=== PATIENT | male | born 1935 | race Caucasian/White ===

== ENCOUNTER 2017-07-30 10:13 | Day surgery (SDC) | payer MEDICARE, OTHER ==
[~2017-07-30] VITALS: Ht 182.9 cm; Wt 108.8 kg
[2017-07-30] MEDS ORDERED: IOHEXOL 350 MG/ML 50 ML BTL (for Cath Lab) OTHER ONE (10:14)
[2017-07-30] MEDS ORDERED: ASPIRIN 81 MG CHEW TAB PO SCH (10:45)
[2017-07-30] MEDS ORDERED: HYDR-3801 PO (10:45)
[2017-07-30] MEDS ORDERED: GLIP10TA6 PO (10:45)
[2017-07-30] MEDS ORDERED: LOSA100T PO (10:45)
[2017-07-30] MEDS ORDERED: PLAV75TA29 PO (10:45)
[2017-07-30] MEDS ORDERED: LIPI20TA PO (10:45)
[2017-07-30] MEDS ORDERED: ASPI81CH6 CHEW (10:45)
[2017-07-30 10:46] VITALS: BP 178/87; PULSE 65; RESP 18; TEMP 98.1; O2SAT 98
[2017-07-30 11:36] LABS: AUTOMATED NEUTROPHIL # 4.8 TH/MM3 (1.8-7.7); BASOPHIL # 0.1 TH/MM3 (0-0.2); BASOPHIL % 0.8 % (0.0-2.0); EOSINOPHIL # 0.3 TH/MM3 (0-0.4); EOSINOPHIL % 3.9 % (0.0-4.0); HEMATOCRIT 36.7 % (39.0-51.0); HEMOGLOBIN 12.8 GM/DL (13.0-17.0); LYMPH % 26.1 % (9.0-44.0); MEAN CORPUSCULAR HEMOGLOBIN 30.8 PG (27.0-34.0); MEAN PLATELET VOLUME 8.3 FL (7.0-11.0); MONO % 6.9 % (0.0-8.0); MONOCYTE # 0.5 TH/MM3 (0-0.9); NEUT % 62.3 % (16.0-70.0); PLATELET COUNT 181 TH/MM3 (150-450); RED BLOOD COUNT 4.17 MIL/MM3 (4.50-5.90); RED CELL DISTRIBUTION WIDTH 16.1 % (11.6-17.2); WHITE BLOOD COUNT 7.7 TH/MM3 (4.0-11.0)
[2017-07-30 11:53] LABS: BICARBONATE 27.5 MEQ/L (21.0-32.0); CALCIUM 9.5 MG/DL (8.5-10.1); CREATININE 1.74 MG/DL (0.60-1.30)
[2017-07-30 11:55] LABS: INTERNATIONAL NORMALIZED RATIO 1.1 RATIO
[2017-07-30] MEDS ORDERED: HEPARIN SODIUM - IV 10,000 UNITS/10 ML VIAL ONE (14:11)
[2017-07-30] MEDS ORDERED: NITROGLYCERIN INJ 5 ML ONE (14:11)
[2017-07-30] MEDS ORDERED: LIDOCAINE HCL 1% PF 30 ML VIAL ONE (14:17)
[2017-07-30] MEDS ORDERED: MIDAZOLAM HCL 2 MG/2 ML VIAL ONE (14:29)
[2017-07-30] MEDS ORDERED: SODIUM CHLORIDE 0.9% FLUSH 10 ML FLUSH IV FLUSH PRN (14:45)
[2017-07-30] MEDS ORDERED: MISC INFORMATION XX ONE (14:45)
--- NOTE | 2017-07-30 14:51 | CATHPROC ---
[facility] HIS Report Study Information Study Number Admission Scheduled Start Study Start [id number] Jul 30 2017 10:13AM 07/30/2017 Jul 30 2017 2:08PM [place] [facility] Cardiac Catheterization Admit Source Facility Department Other [facility] Physician and Clinical Staff Initial MD Green, Valentin Buckle Strap Drum Operator Priti Bradley,SINDY Other cathlab, cathlab Recorder Darlene Mayberry,RT(R) Scrub Petra Mcneil,RT(R) Procedures Performed Procedure Location (Site) Vessel Name Coronary Angiograms LCA Left Coronary Coronary Angiograms RCA Right Coronary L Heart Cath LV Gram-hand inj. LV LV Ventricle Wire insertion Fem Art (right) Femoral Art Equipment Time Theater Technician Description Size Mfg Part Number Used/Scraped TRANSDUCER, TRUWAVE [id number] 14:19 TREADWELL HERNANDEZ * Used W/STOCKCOCK *[id number] *[id number] *[id number] 14:19 MEDLINE IND[employer] PACK, CCL CUSTOM * Used *[id number] 14:19 [place] PACER PEN, SKIN DUAL W/ RULER * Used *[id number] 14:19 [place] WIRE, 3MMJ .035 180CM 180CM Used *[id number] 14:19 NAMIC MANIFOLD, 4 PORT * Used *[id number] 14:19 NYCOMED OMNIPAQUE, 350 MG, 150ML 150ML [id number] 14:19 [employer]A MED[employer] BLANKET,WARM AIR CCL * Used *[id number] 14:19 TERUMO MEDICAL SHEATH, FR4 TERUMO (10CM) FR 4 Used *[id number] History: Current Medications Medication Dosage/Unit Route Frequency Last Date/Time Taken Statins (any) ASA PLAVIX Glypizide LIPITOR History: Allergies Allergy Reaction No Known Drug Allergies History: Risk Factors Family History of Hypertension Dyslipidemia Previous AK Previous Heart Failure Premature CAD Yes Yes No No Yes Prior Valve Prior PCI Prior PCIDate Prior CABG Surgery No Yes 04/30/2016 No Cerebrovascular Peripheral Artery Chronic Lung On Dialysis Diabetes Diabetes Therapy Disease Disease Disease No No No No Yes Oral History: CV Disease Selection Items Known CAD History: Stress Tests Stress or Imaging Studies Performed Yes Standard Exercise Stress Test No Stress Echo No Stress Test SPECT Stress Test SPECT Result Stress Test SPECT Ischemia Risk/Extent Yes Positive High Stress Test CMR No Cardiac CTA Coronary Calcium Score No No History: Other Disease Selection Items CAD HTN History: Other Current Smoker Method No Cigarettes Labs Hgb (g/dl) Hct (%) RBC (MIL/MM3) WBC (l/cumm) Platelets (thousands) 11.60-17.00 35.00-51.00 4.00-5.90 4.00-11.00 150.00-450.00 12.8 36.7 4.1 7.7 181 Glucose (mg/dl) BUN (mg/dl) Creatinine (mg/dl) BUN:Creatinine (1:x) 74.00-106.00 7.00-18.00 0.50-1.30 10.00-20.00 102 24 1.7 14.1 Na (meq/l) K (meq/l) Cl (meq/l) CO2 (mmol/L) Ca (mg/dl) 136.00-145.00 3.50-5.10 98.00-107.00 21.00-32.00 8.50-10.10 139 3.9 104 27.5 9.5 PT (sec) INR (PTT:PT) 9.80-11.60 0.90-1.10 11 1.1 CPK-MB (ng/ML) 0.50-3.60 Not Drawn Medication Medication Total Dose (Bolus/Oral) Medication Total Dosage/Unit 1% XYLOCAINE 20 mL VERSED 1 mg Medications (Bolus/Oral) Medication Time Given Dosage/Unit Administered By Reason 1% XYLOCAINE 07/30/2017 2:31:17 PM 20 mL Valentin Green 20 mL 1% XYLOCAINE given in lab by Valentin Green in Right Groin via Subcutaneous. VERSED 07/30/2017 2:31:19 PM 1 mg Valentin Green 1 mg VERSED given in lab by Valentin Green via Peripheral IV. Medication (Drip) Medication Time Given Dosage/Unit Concentration/Unit Diluent (ml) Solution IV Bolus 07/30/2017 2:35:46 PM 1000 mL (Bolus) NaCl .9 1000 mL (Bolus) IV Bolus given in lab by Priti Bradley, SINDY via Peripheral IV. Using NaCl .9. IV Solutions 07/30/2017 2:19:01 PM 0 mL (IV) 500 NaCl .9 Patient arrived on IV Solutions in Left Antecubital via Peripheral IV. Pump/Drip Flow = 20 ml/hr usin g NaCl .9. Initial Case Assessment Cardiovascular HR Rhythm NIBP 50 roland w/pvc 156/79 Edema Present Skin color Skin None Normal Warm Circulatory - Right Pulses Dorsalis Pedis Femoral 3 3 Scale (0,1,2,3,4,d) Circulatory - Left Pulses Dorsalis Pedis Femoral d 3 Scale (0,1,2,3,4,d) Circulatory - Lower Extremities Color Lower Right Color Lower Left Normal Normal Neurological State Oriented to time-place- Alert Moves all extremities person Respiration - General Respiration Rate SpO2 (%) (B/min) 12 98 Final Case Assessment Cardiovascular HR Rhythm Chest Pain 66 roland w/pvc 0 Edema Present Skin color Skin None Normal Warm Circulatory - Right Pulses Dorsalis Pedis Femoral 3 3 Scale (0,1,2,3,4,d) Circulatory - Left Pulses Dorsalis Pedis Femoral d 3 Scale (0,1,2,3,4,d) Circulatory - Lower Extremities Color Lower Right Color Lower Left Normal Normal Neurological State Oriented to time-place- Alert Moves all extremities person Respiration - General Respiration Rate SpO2 (%) (B/min) 14 95 Chronological Log Time Study Chronological Log 14:10:43 Patient arrived via Bed. 14:10:47 Patient Name, D.O.B, / Armband Verified By R.N. 14:10:49 Consent signed by the physician and the patient and verified by the [facility] staff. Vitals capture started with the following parameters, Patient=Adult, Interval=5 min, Initial Pr bfrhab=109 mmHg, 14:18:33 Deflation Rate=5 mmHg, Cuff placed on Unknown 14:18:52 Pre-op and post- op instructions given; patient acknowledges understanding of instructions. 14:18:53 Verbal Stimulation=2 Physical Stimulation=2 Airway=2 Respiration=2 TOTAL=8. (0=absent, 1=li mited, 2=present) 14:18:55 Presedation assessment performed by [facility] RN. 14:18:57 Immediate Presedation assesment performed by physician. 14:18:57 Patient has been NPO for More than 6Hrs. 14:18:58 Skin Breakdown-none 14:18:59 Patient Warmer Placed on the Table. 14:18:59 [place] Protected 14:19:01 A # 20 IV was noted in the Antecubital (left). Grade = 0 14:19:01 Patient arrived on IV Solutions in Left Antecubital via Peripheral IV. Pump/Drip Flow = 20 ml/hr using NaCl .9. 14:19:02 History and physical on the chart or being dictated. 14:19:18 HR=53 bpm, DUUM=506/80 mmhg, SpO2=98.0 %, Resp=13 B/min, Pain=0, Meaghan=10, Cotton=2 14:20:52 Reference ECG taken 14:22:49 Pressure channel 1 zeroed. 14:23:19 MD paged 14:24:19 HR=53 bpm, DNFK=591/79 mmhg, SpO2=97.0 %, Resp=18 B/min, Pain=0, Meaghan=10, Cotton=2 14:27:03 MD arrived. Assessment: Initial Case, HR=50 BPM, Rhythm=roland w/pvc, MRHP=774/79 mmhg, Edema=None, Color=No rmal, Skin = Warm Right Pulses: [place] Ped=3, Femoral=3 Left Pulses: [place] Ped=d, Femoral=3 14:27:13 Lower Right Extremities: Color=Normal Lower Left Extremities: Color=Normal Neurological: State=Alert, Ox3, GODOY Respiration: Resp=12 B/min, SpO2=98 % 14:28:09 Bilateral groins prepped with 2% chlorhexidine, and draped after a 3 minute waiting time. 14:29:16 HR=52 bpm, BXJD=453/80 mmhg, SpO2=97.0 %, Resp=20 B/min, Pain=0, Meaghan=10, Cotton=2 Time Out. Correct patient, correct procedure, correct physician, power injector not loaded with contrast with surgical 14:31:02 team present. Time Out Concurred by MD and individual staff in procedure. 14:31:09 Case Start 14:31:11 Verbal Stimulation=2 Physical Stimulation=2 Airway=2 Respiration=2 TOTAL=8. (0=absent, 1=li mited, 2=present) 14:31:17 20 mL 1% XYLOCAINE given in lab by Valentin Green in Right Groin via Subcutaneous. 14:31:19 1 mg VERSED given in lab by Valentin Green via Peripheral IV. 14:31:58 Access site was Right Femoral Artery. 14:32:03 A wire was inserted via Fem Art (right). 14:32:06 A SHEATH, FR4 TERUMO (10CM) FR 4 was advanced into the Fem Art (right) using the Percut[place]o us technique. A JR 4.0 INFINITI CATHETER FR 4 was advanced over a wire. OMNIPAQUE, 350 MG, 150ML 150ML was us ed for 14:33:18 injections. Recorded Pressure: LV, HR=55, Condition=Condition 1 14:33:55 (Left Ventricle) LV 157/8/16 14:34:02 The LV was manually injected with 10 cc's and visualized. OMNIPAQUE, 350 MG, 150ML 150ML us ed. Recorded Pressure: LV, Ao, HR=49, Condition=Condition 1 14:34:15 (Left Ventricle) LV 151/8/19, (Aorta) Ao 148/62/92 14:34:54 HR=61 bpm, VRUK=545/78 mmhg, SpO2=96.0 %, Resp=16 B/min, Pain=0, Meaghan=10, Cotton=2 Recorded Pressure: Ao, HR=66, Condition=Condition 1 14:34:54 (Aorta) Ao 147/69/101 14:35:12 The RCA was injected and visualized at various angles. OMNIPAQUE, 350 MG, 150ML 150ML used . 14:35:27 Catheter was removed A JL 4.0 INFINITI CATHETER FR 4 was advanced over a wire. OMNIPAQUE, 350 MG, 150ML 150ML was us ed for 14:35:37 injections. 14:35:46 1000 mL (Bolus) IV Bolus given in lab by Priti Bradley, RN via Peripheral IV. Using NaCl .9. 14:37:01 The LCA was injected and visualized at various angles. OMNIPAQUE, 350 MG, 150ML 150ML used . 14:37:23 Catheter was removed 14::58 Case End Assessment: Final Case, HR=66 BPM, Rhythm=roland w/pvc, Chest Pain=0, Edema=None, Color=Normal, Skin = Warm Right Pulses: [place] Ped=3, Femoral=3 Left Pulses: [place] Ped=d, Femoral=3 14:38:03 Lower Right Extremities: Color=Normal Lower Left Extremities: Color=Normal Neurological: State=Alert, Ox3, GODOY Respiration: Resp=14 B/min, SpO2=95 % 14:39:18 HR=58 bpm, NNJU=112/78 mmhg, SpO2=97.0 %, Resp=24 B/min, Pain=0, Meaghan=10, Cotton=2 14:40:31 Sheath(s) left in place, will be removed in Holding Area 14:40:36 Sterile dressing applied to site 14:40:37 No case complications noted. 14:40:38 Cine recording checked. 14:40:40 Bedside Report will be given. 14:40:44 A Left Heart Cath was performed. 14:40:47 Patient moved to stretcher End Study - Contrast Media Used In Study Contrast Total Opened (mL) Total Used (mL) Total Wasted (mL) Omnipaque 20 20 0 End Study - Maximum Contrast Load Max Contrast Load (mL) 320.1 End Study - Radiation Exposure Fluoro Time (minutes) 1.4 End Study - Patient Disposition Complications Transferred To Outpatient Bed
[2017-07-30] MEDS ORDERED: BACITRACIN OINT 0.9 GM PKT TOP ONE (15:00)
[2017-07-30] MEDS ORDERED: SODIUM CHLORIDE 0.9% FLUSH 10 ML FLUSH IV FLUSH SCH (21:00)
--- NOTE | 2017-07-30 22:51 | EKG ---
Date Performed: 07/30/2017 Time Performed: 10:53:08 PTAGE: 82 years EKG: Sinus bradycardia Normal ECG except for rate NO PREVIOUS TRACING DOCTOR: Parvez Quinones Interpretating Date/Time 07/30/2017 22:49:00
== END 2017-07-30 17:21 | disposition home or self-care (01) ==
LOC: HDIC 10:13 → HCAT 10:13
PROVIDERS: ATTEND Internal Medicine Interventional Cardiology
DX: I25.10 Atherosclerotic heart disease of native coronary artery without angina pectoris (principal); I50.9 Heart failure, unspecified; I12.9 Hypertensive chronic kidney disease with stage 1 through stage 4 chronic kidney disease, or unspecified chronic kidney disease; N18.3 Chronic kidney disease, stage 3 (moderate); E11.9 Type 2 diabetes mellitus without complications; G47.30 Sleep apnea, unspecified; Z72.0 Tobacco use; Z79.84 Long term (current) use of oral hypoglycemic drugs; Z79.82 Long term (current) use of aspirin
CPT/HCPCS: 80048; 85025; 85610; 93005; 93458; 99152; C1769; C1893; J1644; J2250; Q9967